=== PATIENT | female | born 1970 | race Caucasian/White ===

== ENCOUNTER 2017-09-15 12:45 | Outpatient (CLI) | payer OTHER ==
--- NOTE | 2017-09-15 15:00 | CT ---
CT LUMBAR SPINE WITHOUT CONTRAST: Date: 09/15/17 HISTORY: Radiculopathy. Pain in right leg. COMPARISON: None. FINDINGS: Mild prominence of the right renal pelvis and proximal ureter. No calculi seen within the intrarenal collecting systems. Aortic contour is nonaneurysmal. No retroperitoneal adenopathy. There are five non-rib bearing lumbar-type vertebrae. No fracture. Levels are as follows: T12-L1: No neural foraminal or spinal canal narrowing. L1-2: No significant neural foraminal or spinal canal narrowing. L2-3: Circumferential disc bulge. Mild height loss. Mild facet arthropathy. The spinal canal measures just over 11.0 mm. No significant neural foraminal narrowing. L3-4: Normal disc. No significant neural foraminal or spinal canal narrowing. Moderate facet arthrosis. L4-5: Mild degenerative disc space height loss. There is a broad based posterior disc bulge. Moderate facet arthropathy. Spinal canal measures approximately 1.0 cm. There is no significant neural foraminal na rrowing. L5-S1: Moderate degenerative disc space height loss. Mild end plate sclerosis. Posterior disc osteophyte com plex is present. There is moderate bilateral neural foraminal narrowing. Spinal canal not significant ly narrowed. Moderate facet arthrosis. IMPRESSION: Mild to moderate spondylosis as described above, worst at L4-5 and L5-S1. No acute fracture. No malalignment. No listhesis. POS: [facility]
== END 2017-09-15 12:46 | disposition home or self-care (01) ==
LOC: TBSIIMAG 12:45
PROVIDERS: ATTEND Neurological Surgery
DX: M47.26 Other spondylosis with radiculopathy, lumbar region (principal)
CPT/HCPCS: 72131

== ENCOUNTER 2018-12-13 14:37 | Emergency (ER) | payer BC, OTHER ==
--- NOTE | 2018-12-13 15:47 | ULT ---
ULTRASOUND ABDOMEN LIMITED: (RIGHT UPPER QUADRANT) DATE: 12/13/2018 HISTORY: 48-year-old female with right upper quadrant abdominal pain FINDINGS: Gallbladder: Normal wall thickness. No gallstones identified. No pericholecystic fluid. Questionable small amount of sludge. Liver: Normal parenchymal echogenicity. Right kidney: No hydronephrosis. Pancreas: Visualized, with no gross sonographic abnormality identified (although ultrasound is relati vely insensitive for the detection of pancreatic pathology compared to CT and MRI.). Common duct caliber: 2 mm. IMPRESSION: 1) questionable small amount of gallbladder sludge. 2) otherwise normal
== END 2018-12-13 16:53 | disposition home or self-care (01) ==
LOC: ERS 14:37
DX: R10.11 Right upper quadrant pain (principal); R10.30 Lower abdominal pain, unspecified
CPT/HCPCS: 76705